=== PATIENT | male | born 1970 | race Caucasian/White ===

== ENCOUNTER 2020-07-10 12:31 | Emergency (ER) | payer BC, SELFPAY ==
[2020-07-10] VITALS (18 sets, daily range): BP systolic 119–148; BP diastolic 81–102; PULSE 85–103; RESP 12–20; TEMP 36.8; O2SAT 93–99
--- NOTE | ~2020-07-10 | XR_ITS ---
EXAMINATION: XR chest 1V portable DATE: 07/10/2020 13:08 INDICATION: Shortness of breath. COVID-19 positive. TECHNIQUE: A single frontal view of the chest was obtained. COMPARISON: None. FINDINGS: The chest demonstrates clear lungs without pneumonia, pleural effusion, or pneumothorax. Th e heart size is normal. IMPRESSION: 1. No acute cardiopulmonary disease. Reviewed, dictated and finalized at location A.
--- NOTE | 2020-07-10 12:37 | ECG_ITS ---
Measurements Intervals [place] Rate: 90 P: 59 [place]: 139 QRS: 2 QRSD: 97 T: -5 QT: 349 QTc: 428 Interpretive Statements SINUS RHYTHM VOLTAGE CRITERIA FOR LVH BORDERLINE ST-T WAVE ABNORMALITY- INFERIOR LEADS BASELINE ARTIFACT- I, II, AVR, AVF, V5-V6 BORDERLINE ECG Electronically Signed On 07-10-2020 14:31:10 CDT by Angel Tong D.O.
--- NOTE | 2020-07-10 12:47 | ED.URI ---
HPI - URI/Sore Throat General Chief Complaint: Upper Respiratory Infection Stated Complaint: COVID + CONTINUED RESP SYMPTOMS Time Seen by Provider: 07/10/20 12:34 Source: patient Mode of arrival: ambulatory Limitations: no limitations History of Present Illness HPI Narrative: This is a 49 year old male that presents to the ER for continued shortness of breath. Reports he was diagnosed with coronavirus about 10 days ago. He has had fever, cough and congestion. Also reports a couple of days of diarrhea. Reports he is continued to be short of breath. This is worse with exertion. His primary suggested he go to the ER due to shortness of breath. Reports he was prescribed azithromycin, but only finished 2 days of this due to diarrhea. Reports chest discomfort that is worse with deep breathing. Denies any recent fevers, lower extremity edema, or erythema. Related Data Allergies Allergy/AdvReac Type Severity Reaction Status Date / Time No Known Allergies Allergy Mild Verified 03/15/20 09:00 Review of Systems Review of Systems: Narrative: CONSTITUTIONAL: Denies fever ENT: Reports rhinorrhea, congestion, sore throat CARDIOVASCULAR: Reports chest pain. Denies edema. RESPIRATORY: Reports cough and dyspnea. GASTROINTESTINAL: Reports diarrhea. All systems reviewed & are unremarkable except as noted in HPI and below PMFSH Social History Social History Smoking status: Never smoker Alcohol intake: current Exam Narrative: Exam Narrative: GENERAL: Well-appearing, well-nourished, and in no acute distress. HEAD: Normocephalic, atraumatic. EYES: EOMI. ENT: Nares clear, no rhinorrhea or epistaxis. Mucous membranes moist. Oropharynx without tonsillar hypertrophy exudate or other lesions. Bilateral TMs pearly pearson non-bulging NECK: Supple. No adenopathy or masses. CHEST: Clear to auscultation. No respiratory distress. No wheezes rales or rhonchi HEART: Regular rate and rhythm. No murmur heard. Normal peripheral pulses. EXTREMITIES: Normal range of motion. No edema or erythema. SKIN: Warm, dry, no rash. NEURO: No focal deficits. Alert and oriented x3. PSYCH: Normal mood and affect Course Consultations Consultation #1: Spoke with BRIONNA Patton on-call for Dr. Sparks about patient and work-up. Patient is to follow-up outpatient. Date: 07/10/20 Time: 14:18 Vital Signs Vital signs: Vital Signs Temperature 98.2 F 07/10/20 12:55 Pulse Rate 89 07/10/20 12:55 Respiratory Rate 14 07/10/20 12:55 Blood Pressure 122/90 07/10/20 12:55 Pulse Oximetry 99 07/10/20 12:55 Temperature 98.2 F 07/10/20 12:55 Pulse Rate 89 07/10/20 12:55 Respiratory Rate 14 07/10/20 12:55 Blood Pressure 122/90 07/10/20 12:55 Pulse Oximetry 99 07/10/20 13:14 MDM - URI/Sore Throat MDM Narrative Medical decision making narrative: Patient presents to the emergency department for shortness of breath x10 days. Was diagnosed with coronavirus and has continued to be short of breath since. He is afebrile and nontoxic-appearing. Oxygen saturation has remained normal on room air. CBC and metabolic panel without concerning findings. EKG is without concerning changes. Troponin and d-dimer are negative. Chest x-ray is clear. Inflammatory markers are not elevated. BNP is normal. Patient able to ambulate and maintain his oxygen saturation. Spoke with BRIONNA Patton on-call for Dr. Sparks about patient and work-up. Patient is to follow-up outpatient. Patient is stable and felt appropriate for further outpatient evaluation. He was given warnings to return to the ER Lab Data Attestation: I reviewed the patient's lab results. Result diagrams: 07/10/20 12:46 07/10/20 12:46 Labs: Lab Results 07/10/20 07/10/20 07/10/20 Range/Units 12:46 12:46 12:46 WBC 7.4 (4.5-10.0) K/mm3 RBC 5.25 (4.6-6.20) M/mm3 Hgb 16.0 (14.0-18.0) g/dL Hct 44.6
[2020-07-10 12:54] LABS: Basophils Absolute Auto 0.1 K/mm3 (0.0-0.1); Basophils Percent Auto 0.7 % (0.2-1.2); Eosinophils Absolute Auto 0.2 K/mm3 (0-0.3); Eosinophils Percent Auto 2.4 % (0-4.4); Hematocrit 44.6 % (42.0-52.0); Immature Granulocyte Absolute 0.03 K/mm3 (0.00-0.031); Immature Granulocyte Percent A 0.4 % (0-0.5); Lymphocytes Absolute Auto 2.36 K/mm3 (0.9-3.2); Lymphocytes Percent Auto 31.8 % (18.3-44.2); Mean Corpuscular HGB Conc 35.9 g/dl (32-36); Mean Corpuscular Hemoglobin 30.5 pg (26-34); Mean Platelet Volume 10.1 fl (7.4-10.4); Monocytes Absolute Auto 0.4 K/mm3 (0.1-0.6); Monocytes Percent Auto 5.8 % (2.6-8.5); Neutrophils Absolute Auto 4.4 K/mm3 (1.3-6.7); Neutrophils Percent Auto 58.9 % (45.5-73.1); Platelet Count Result 217 k/mm3 (150-375); Red Blood Count 5.25 M/mm3 (4.6-6.20); Red Cell Distribution Width 12.2 % (11.5-14.5); White Blood Count 7.4 K/mm3 (4.5-10.0)
[2020-07-10 13:05] LABS: Lactic Acid Reflex 1.8 mmol/L (0.7-2.1)
[2020-07-10 13:09] LABS: Alanine Aminotransferase 34 U/L (4-50); Albumin Level 4.7 g/dL (3.5-5.1); Alkaline Phosphatase 81 U/L (38-126); Anion Gap 10 mmol/L (8-16); Aspartate Amino Transferase 25 U/L (17-59); Bilirubin,Total 0.3 mg/dL (0.2-1.3); Blood Urea Nitrogen 16 mg/dL (9-20); CRP < 0.5 mg/dL (<1.0); Calcium 9.1 mg/dL (8.4-10.2); Carbon Dioxide 26 mmol/L (22-30); Chloride 104 mmol/L (98-107); Estimated Glomerular Filt Rate > 60; Glucose 109 mg/dL (75-110); Lactate Dehydrogenase 366 U/L (313-618); Potassium 3.9 mmol/L (3.4-5.0); Sodium 140 mmol/L (137-145)
[2020-07-10 13:13] LABS: D Dimer 0.39 ug/mL (<0.48)
[2020-07-10 13:15] LABS: NT Pro B Type Natriuretic Pept 24 PG/ML (5-100)
[2020-07-10 13:21] LABS: Troponin I < 0.012 ng/mL (0.000-0.034)
== END 2020-07-10 14:39 | disposition home or self-care (01) ==
PROVIDERS: Physician Assistant; Emergency Provider Emergency Medicine; PCP Family Medicine
DX: U07.1 COVID-19 (principal); R06.02 Shortness of breath; R94.31 Abnormal electrocardiogram [ECG] [EKG]
CPT/HCPCS: 36415; 71045; 80053; 82728; 83605; 83615; 83880; 84484; 85025; 85380; 86140; 93005; 99284

== ENCOUNTER 2020-07-17 07:53 | Outpatient (CLI) | payer BC, SELFPAY ==
[2020-07-17 08:29] LABS: Basophils Absolute Auto 0.1 K/mm3 (0.0-0.1); Basophils Percent Auto 0.9 % (0.2-1.2); Eosinophils Absolute Auto 0.2 K/mm3 (0-0.3); Eosinophils Percent Auto 3.4 % (0-4.4); Hematocrit 40.2 % (42.0-52.0); Hemoglobin 13.9 g/dL (14.0-18.0); Immature Granulocyte Absolute 0.04 K/mm3 (0.00-0.031); Immature Granulocyte Percent A 0.6 % (0-0.5); Lymphocytes Absolute Auto 1.98 K/mm3 (0.9-3.2); Lymphocytes Percent Auto 28.4 % (18.3-44.2); Mean Corpuscular HGB Conc 34.6 g/dl (32-36); Mean Corpuscular Hemoglobin 29.8 pg (26-34); Mean Corpuscular Volume 86.3 fl (80-100); Mean Platelet Volume 10.2 fl (7.4-10.4); Monocytes Absolute Auto 0.5 K/mm3 (0.1-0.6); Monocytes Percent Auto 6.9 % (2.6-8.5); Neutrophils Absolute Auto 4.2 K/mm3 (1.3-6.7); Neutrophils Percent Auto 59.8 % (45.5-73.1); Platelet Count Result 184 k/mm3 (150-375); Red Blood Count 4.66 M/mm3 (4.6-6.20); Red Cell Distribution Width 12.5 % (11.5-14.5)
[2020-07-17 08:42] LABS: Anion Gap 8 mmol/L (8-16); Blood Urea Nitrogen 15 mg/dL (9-20); Carbon Dioxide 28 mmol/L (22-30); Chloride 104 mmol/L (98-107); Estimated Glomerular Filt Rate > 60; Glucose 98 mg/dL (75-110); Sodium 140 mmol/L (137-145)
== END 2020-07-17 07:54 | disposition home or self-care (01) ==
PROVIDERS: PCP Family Medicine; Visit Provider Family Medicine
DX: U07.1 COVID-19 (principal)
CPT/HCPCS: 36415; 80048; 85025; 85380

== ENCOUNTER 2020-07-30 18:58 | Emergency (ER) | payer BC, SELFPAY ==
--- NOTE | ~2020-07-30 | XR_ITS ---
EXAMINATION: XR chest 1V portable INDICATION: Cough and persistent shortness of breath status post COVID 19 diagnosis five weeks ago TECHNIQUE: Portable AP chest at 2011 hours COMPARISON: 07/10/2020 FINDINGS: The lungs are free of acute opacities. There is no pleural effusion or pneumothorax. The he art size is upper limits of normal for technique. IMPRESSION: 1. No acute cardiopulmonary abnormality. Reviewed, dictated and finalized at location A.
[2020-07-30 19:17] VITALS: BP 150/92; PULSE 65; RESP 12; TEMP 36.9; O2SAT 98
[2020-07-30 19:24] VITALS: PULSE 72
--- NOTE | 2020-07-30 19:28 | ECG_ITS ---
Measurements Intervals [place] Rate: 68 P: 73 [place]: 138 QRS: -20 QRSD: 111 T: -7 QT: 398 QTc: 425 Interpretive Statements SINUS RHYTHM BORDERLINE ST-T WAVE ABNORMALITY- INFERIOR LEADS BORDERLINE ECG Electronically Signed On 07-31-2020 6:40:35 CDT by Angel Tong D.O.
[2020-07-30 19:56] LABS: Alveolar/Arterial O2 Gradient 13.3 mmHg; Base Excess ABG -0.3 mEq/l (+/-2.0); Fractional Inspired Oxygen 21 %; HCO3 ABG 23.9 mEq/l (22.0-26.0); Modified Allen's Test Pass; Oxygen Content ABG 18.7 %vol (16.0-22.0); Oxygen Saturation ABG 97.2 % (95.0-100.0); Oxyhemoglobin 95.9 % THb (90.0-100.0); PCO2 ABG 37.6 mmHg (35.0-45.0); PO2 ABG 91.4 mmHg (80.0-100.0); PO2 FiO2 Ratio Arterial Blood 4.35 %; Site Drawn LEFT RADIAL; Total Hemoglobin 13.8 g/dL (12.0-18.0); pH ABG 7.421 (7.350-7.450)
[2020-07-30 19:57] LABS: Device ROOM AIR
--- NOTE | 2020-07-30 19:59 | ED.SOB ---
HPI - SOB/Dyspnea General Chief Complaint: Shortness of Breath/Dyspnea Stated Complaint: sob, recovering from covid Time Seen by Provider: 07/30/20 19:10 Source: patient History of Present Illness HPI Narrative: Pt c/o sob, sudden onset, lasted for approx 30-45 mins, now resolved. Pt currently has no complaints. Pt states he is feeling better and his sob had resolved. Denies cp, abd pain, n/v or fever. Pt states he was diagnosed with covid 5 weeks ago. Related Data Allergies Allergy/AdvReac Type Severity Reaction Status Date / Time No Known Allergies Allergy Mild Verified 07/30/20 19:24 Review of Systems Review of Systems: All systems reviewed & are unremarkable except as noted in HPI and below Constitutional: Constitutional: Denies body ache(s), Denies chills, Denies excessive sweating, Denies fatigue, Denies fever(s), Denies headache(s), Denies lethargy, Denies malaise, Denies weakness and Denies weight loss Eyes: Eyes: Denies blurry vision, Denies change in vision and Denies loss of vision ENT: Denies dizziness, Denies ear discharge, Denies headache(s), Denies lip swelling, Denies epistaxis, Denies nasal congestion, Denies neck pain, Denies throat swelling and Denies tongue swelling Cardiovascular: Cardiovascular: Denies chest pain, Denies chest pain at rest, Denies chest pain with activity, Denies diaphoresis, Denies rapid heart rate, Denies edema, Denies irregular heart rhythm, Denies lightheadedness, Denies palpitations, Denies dyspnea and Denies dyspnea on exertion Respiratory: Respiratory: Denies chest congestion, Denies cough and Denies hemoptysis Gastrointestinal: Gastrointestinal: Denies abdominal pain, Denies melena, Denies hematochezia, Denies diarrhea, Denies nausea, Denies vomiting and Denies hematemesis Musculoskeletal: Musculoskeletal: Denies abnormal gait, Denies deformity, Denies joint swelling, Denies limited range of motion, Denies neck pain and Denies numbness Neurologic: Denies Abnormal speech present, Denies abnormal gait, Denies confusion, Denies dizziness, Denies headache(s), Denies focal weakness, Denies loss of vision, Denies numbness, Denies Other visual disturbances, Denies Sensory deficit (Neuro) and Denies weakness Psychiatric: Psychiatric: Denies confusion, Denies depression, Denies auditory hallucinations, Denies homicidal ideation and Denies suicidal ideation Endocrine: Endocrine: Denies cold intolerance, Denies excessive sweating, Denies fatigue, Denies heat intolerance and Denies palpitations Hematologic/Lymphatic: Hematologic/Lymphatic: Denies easy bleeding and Denies easy bruising Allergic/Immunologic: Allergic/Immunologic: Denies lip swelling, Denies throat swelling and Denies tongue swelling [facility] Past Medical History Medical History (Updated 07/30/20 @ 22:07 by Darin Tijerina MD) COVID-19 Social History Social History Smoking status: Never smoker Alcohol intake: current Exam Const: General: cooperative, healthy appearing, comfortable, no acute distress, well developed, alert and awake; No confusion Orientation/consciousness: oriented to person, oriented to place, oriented to time, patient oriented x3 and No confusion Limitations: no limitations HENMT: Head: normal to inspection, normocephalic and atraumatic Ears: hearing grossly normal bilaterally, TM normal on the right and TM normal on the left General nose exam: Normal external nose present, Normal nares present and No nasal discharge present Face and sinus: normal facial exam Mouth: Yes Normal oral and palatal mucosa present, Yes lip normal, Yes tongue normal and Yes oropharynx normal Throat: posterior oropharynx normal, tonsils normal and uvula midline Eyes: General: appearance normal, both eyes and all related structures Pupils: Equal, round and reactive pupils present EOM: EOMs intact bilaterally Neck: Neck: normal visual inspection, full ROM, no lymphadenopath
[2020-07-30 20:11] LABS: Basophils Percent Auto 0.4 % (0.2-1.2); Eosinophils Absolute Auto 0.1 K/mm3 (0-0.3); Eosinophils Percent Auto 1.2 % (0-4.4); Hematocrit 38.8 % (42.0-52.0); Hemoglobin 13.6 g/dL (14.0-18.0); Immature Granulocyte Absolute 0.03 K/mm3 (0.00-0.031); Immature Granulocyte Percent A 0.3 % (0-0.5); Lymphocytes Absolute Auto 1.84 K/mm3 (0.9-3.2); Lymphocytes Percent Auto 19.5 % (18.3-44.2); Mean Corpuscular HGB Conc 35.1 g/dl (32-36); Mean Corpuscular Hemoglobin 30.5 pg (26-34); Mean Platelet Volume 10.1 fl (7.4-10.4); Monocytes Absolute Auto 0.7 K/mm3 (0.1-0.6); Neutrophils Absolute Auto 6.8 K/mm3 (1.3-6.7); Neutrophils Percent Auto 71.6 % (45.5-73.1); Platelet Count Result 190 k/mm3 (150-375); Red Blood Count 4.46 M/mm3 (4.6-6.20); Red Cell Distribution Width 12.7 % (11.5-14.5); White Blood Count 9.4 K/mm3 (4.5-10.0)
[2020-07-30 20:21] LABS: Partial Thromboplastin Time 29.2 SECONDS (22.3-36.8)
[2020-07-30 20:23] LABS: Alanine Aminotransferase 24 U/L (4-50); Albumin Level 4.7 g/dL (3.5-5.1); Alkaline Phosphatase 77 U/L (38-126); Anion Gap 8 mmol/L (8-16); Aspartate Amino Transferase 22 U/L (17-59); Bilirubin,Total 0.3 mg/dL (0.2-1.3); Blood Urea Nitrogen 16 mg/dL (9-20); Calcium 8.9 mg/dL (8.4-10.2); Carbon Dioxide 25 mmol/L (22-30); Chloride 105 mmol/L (98-107); Estimated Glomerular Filt Rate > 60; Glucose 105 mg/dL (75-110); Potassium 3.7 mmol/L (3.4-5.0); Sodium 138 mmol/L (137-145)
[2020-07-30 20:24] LABS: D Dimer 0.27 ug/mL (<0.48)
[2020-07-30 20:35] LABS: NT Pro B Type Natriuretic Pept 55 PG/ML (5-100); Troponin I < 0.012 ng/mL (0.000-0.034)
[2020-07-30 20:59] VITALS: BP 136/89; PULSE 75; RESP 14; O2SAT 97
[2020-07-30 22:40] VITALS: BP 118/90; PULSE 78; RESP 19; TEMP 36.8; O2SAT 98
== END 2020-07-30 22:42 | disposition home or self-care (01) ==
PROVIDERS: Emergency Provider Emergency Medicine; PCP Family Medicine
DX: R06.00 Dyspnea, unspecified (principal)
CPT/HCPCS: 36415; 36600; 71045; 80053; 82805; 83880; 84484; 85025; 85380; 85610; 85730; 93005; 99284

== ENCOUNTER 2020-08-08 10:37 | Outpatient (CLI) | payer BC, SELFPAY ==
--- NOTE | 2020-08-08 10:48 | ECHO_ITS ---
Patient Info Name: Naeem Rhodes Age: 49 years : 1970 Gender: Male Ht: 70 in Wt: 182 lbs BSA: 2.03 m2 BP: 135 / 90 mmHg Exam Date: 08/08/2020 11:01 AM Exam Location: [facility] Patient Status: Outpatient Admit Date: 08/08/2020 Staff Ordering Physician: Vickey Sparks MD Clinical Team Lead: Allyson Schreiber RDCS Attending Provider: Vickey Sparks MD Referring Physician: Bridger LINTON; Exam Type: CA echo doppler color flow Study Info Indications R00.0 - Tachycardia, unspecified Complete two-dimensional, color flow and Doppler transthoracic echocardiogram is performed. Summary 1. Complete two-dimensional, color flow and Doppler transthoracic echocardiogram is performed. 2. Left ventricular chamber dimension is normal. 3. Left ventricular systolic function is normal, estimated at 55-60%. 4. The left ventricular diastolic function is grade I diastolic dysfunction. 5. E/e' 6 is not elevated. 6. Global longitudinal strain is mildly abnormal at -15.9%. 7. There is trace mitral valve regurgitation. 8. There is trace pulmonic regurgitation. Left Ventricle E/e' 6 is not elevated. Global longitudinal strain is mildly abnormal at -15.9%. Left ventricular chamber dimension is normal. Left ventricular systolic function is normal, estimated at 55-60%. The left ventricular diastolic function is grade I diastolic dysfunction. Right Ventricle Right ventricular chamber dimension is normal. Right ventricular systolic function is normal. Left Atria Left atrial chamber dimension is normal. Right Atria Right atrial chamber dimension is normal. Aortic Valve The aortic valve is trileaflet. There is no aortic valve stenosis. There is no aortic valve regurgitation. Pulmonic Valve There is trace pulmonic regurgitation. Mitral Valve There is no mitral valve stenosis. There is trace mitral valve regurgitation. Tricuspid Valve There is no tricuspid valve regurgitation. Pericardium/Pleural There is no pericardial effusion. Inferior Vena Cava Normal inferior vena cava with >50% collapse upon inspiration consistent with normal right atrial pressure, 5 mmHg. Aorta The aortic root size at the sinus of Valsalva is normal. Left Ventricular Outflow Tract Name Value Normal LVOT 2D LVOT Diameter 2.0 cm LVOT Doppler LVOT Peak Gradient 5 mmHg LVOT Mean Gradient 3 mmHg LVOT VTI 20 cm LVOT VTI/AV VTI Ratio 0.8 LVOT Stroke Volume 66 ml LVOT CO 5.2 l/min LVOT CI 2.5 l/min/m2 Mitral Valve Name Value Normal MV Doppler MV Decel [place] 308 cm/s2 MV PHT 48 ms
== END 2020-08-08 10:38 | disposition home or self-care (01) ==
PROVIDERS: PCP Family Medicine; Visit Provider Family Medicine
DX: R00.0 Tachycardia, unspecified (principal); R06.00 Dyspnea, unspecified
CPT/HCPCS: 93306

== ENCOUNTER 2020-12-18 13:52 | Outpatient (CLI) | payer BC, SELFPAY ==
--- NOTE | 2020-12-18 16:47 | P.PCNPFT_ITS ---
PFT Interpretation This is a pulmonary function test with spirometry, plethysmography and diffusing capacity. The test was performed and results interpreted in accordance with the 2019 and 2005 ATS/ERS Task Force guidelines respectively using the Rajeev/Poldianne reference equations. Findings: Spirometry: The contour of the inspiratory and expiratory flow tracing are nor mal. The FVC is 4.56 L, 88% predicted. The FEV1 is 3.80 L, 101% predicted. The FEV1: FVC ratio was 83%. Plethysmography the total lung capacity is 5.89 L, 81% predicted. The functional residual capacity is 1.99 L, 49% predicted. The residual volume is 1.32 L, 57% predicted. Diffusing capacity the absolute diffusion capacity is 23.1, 86% predicted. The diffusing capacity corrected for alveolar volume is 3.79, 93% predicted. Impression: The spirometry is normal without evidence of an obstructive abnormality. There is a reduction in the residual volume and functional residual capacity with a normal total lung capacity. This is an abnormal but nonspecific lung volume pattern. The diffusing capacity is normal. There are no prior studies for comparison
== END 2020-12-18 13:53 | disposition home or self-care (01) ==
PROVIDERS: PCP Family Medicine; Visit Provider Family Medicine
DX: U07.1 COVID-19 (principal); R06.00 Dyspnea, unspecified
CPT/HCPCS: 94375; 94726; 94729

== ENCOUNTER 2021-01-03 09:32 | Outpatient (CLI) | payer BC, SELFPAY ==
--- NOTE | 2021-01-03 09:40 | EST_ITS ---
Patient Info Name: Naeem Rhodes Age: 50 years : 1970 Gender: Male Ht: 71 in Wt: 187 lbs BSA: 2.07 m2 HR: 65 bpm Technical Quality: Good Exam Date: 01/03/2021 10:08 AM Exam Location: [facility] Patient Status: Outpatient Admit Date: 01/03/2021 Staff Ordering Physician: Vickey Sparks MD Hair Specialist: Karime Alfredo RDCS Attending Provider: Vickey Sparks MD Referring Physician: Bridger LINTON; Exercise Technologist: Maryanne Mcwilliams CT Exercise Physician: Angel Tong DO Exam Type: CA stress echo Study Info Indications R06.00 - Dyspnea, unspecified Treadmill exercise stress echocardiogram is performed. Summary 1. 1. Negative Dez exercise stress test for ischemic ST changes by ECG criteria. 2. 2. Good functional capacity, achieving 11 METs of workload. 3. 3. Baseline hypertension. 4. 4. Appropriate HR response to exercise. 5. 5. Appropriate HR recovery at 1 minute post exercise. 6. 6. Negative stress echocardiogram for ischemia by wall motion analysis. 7. 7. Patient informed of the above results. Stress Echo Findings Left Ventricle Appropriate increase in LV endocardial thickening with systole. Appropriate augmentation of contractility with systole. No wall motion abnormality. Left Ventricle Normal LV systolic function, no wall motion abnormality. Protocol: Dez Stress ECG Details Stage: REST Duration (min): 19 min : 2 sec Speed (mph): 0.0 Grade (%): 0 HR (bpm): 75 SBP (mmHg): 142 DBP (mmHg): 79 METS: --- Stage: STAGE 1 Duration (min): 1 min : 0 sec Speed (mph): 1.7 Grade (%): 10 HR (bpm): 93 SBP (mmHg): 142 DBP (mmHg): 79 METS: --- Stage: STAGE 1 Duration (min): 2 min : 0 sec Speed (mph): 1.7 Grade (%): 10 HR (bpm): 106 SBP (mmHg): 142 DBP (mmHg): 79 METS: --- Stage: STAGE 1 Duration (min): 3 min : 0 sec Speed (mph): 1.7 Grade (%): 10 HR (bpm): 109 SBP (mmHg): 172 DBP (mmHg): 75 METS: --- Stage: STAGE 2 Duration (min): 1 min : 0 sec Speed (mph): 2.5 Grade (%): 12 HR (bpm): 121 SBP (mmHg): 172 DBP (mmHg): 75 METS: --- Stage: STAGE 2 Duration (min): 2 min : 0 sec Speed (mph): 2.5 Grade (%): 12 HR (bpm): 127 SBP (mmHg): 185 DBP (mmHg): 76 METS: --- Stage: STAGE 2 Duration (min): 3 min : 0 sec Speed (mph): 2.5 Grade (%): 12 HR (bpm): 129 SBP (mmHg): 185 DBP (mmHg): 76 METS: --- Stage: STAGE 3 Duration (min): 1 min : 0 sec Speed (mph): 3.4 Grade (%): 14 HR (bpm): 142 SBP (mmHg): 204 DBP (mmHg): 74 METS: --- Stage: STAGE 3 Duration (min): 2 min : 0 sec Speed (mph): 3.4 Grade (%): 14 HR (bpm): 149 SBP (mmHg): 204 DBP (mmHg): 74 METS: --- Stage: STAGE 3 Duration (min): 3 min : 0 sec Speed (mph): 3.4 Grade (%): 14 HR (bpm): 155 SBP (mmHg): 204 DBP (mmHg): 76 METS: --- Stage: ST
== END 2021-01-03 09:33 | disposition home or self-care (01) ==
PROVIDERS: PCP Family Medicine; Visit Provider Family Medicine
DX: R06.00 Dyspnea, unspecified (principal); U07.1 COVID-19
CPT/HCPCS: 93351

== ENCOUNTER 2021-09-10 08:02 | Outpatient (CLI) | payer BC, SELFPAY ==
--- NOTE | 2021-09-10 14:57 | WPDPFTINT ---
PFT Procedure Performed PFT Procedure Performed Spirometry with Pre/Post Bronchodilator Plethysmography (Lung Vol) Diffusing Cap (DLCO) Flow Vol Loop PFT Interpretation Lung volumes were measured with the body plethysmography method. The lung volumes are unremarkable. Spirometry showed normal expiratory flow rates and a normal FEV1 to FVC ratio of 82%. Following administration of a bronchodilator, there was no change in the expiratory flow rates. Lung diffusion capacity is borderline normal at 74 % predicted. The flow volume loop is unremarkable. In comparison to a previous study in December of 2020, the pre bronchodilator FVC and FEV1 are essentially unchanged. The total lung capacity is now greater by approximately 0.7 L whereas the lung diffusion capacity is now lower by approximately 10%. Impression: Spirometry and lung volumes within the normal range. Borderline normal lung diffusion capacity.
== END 2021-09-10 08:03 | disposition home or self-care (01) ==
PROVIDERS: PCP Family Medicine; Visit Provider Family Medicine
DX: U07.1 COVID-19 (principal); R06.00 Dyspnea, unspecified
CPT/HCPCS: 94060; 94726; 94729

== ENCOUNTER 2022-09-13 10:11 | Outpatient (CLI) | payer BC, SELFPAY ==
--- NOTE | ~2022-09-13 | XR_ITS ---
EXAMINATION: XR lumbar spine 6V w bending DATE: 09/13/2022 10:44 INDICATION: Low back pain TECHNIQUE: Anteroposterior, lateral in neutral, flexion and extension, and bilateral oblique views of the lumbar spine, and cone-down lateral view of the lumbosacral junction were obtained. COMPARISON: 01/29/2006 FINDINGS: There is no fracture, dislocation, or subluxation. No laxity is present with flexion or ext ension. The vertebral body heights are maintained. There is mild loss of intervertebral disc space he ight at L4-5 and L5-S1. Small degenerative osteophytes project from the anterior endplates of multipl e vertebral bodies. Calcified atherosclerosis is noted. There is moderate facet osteoarthritis of the lower lumbar spine. IMPRESSION: 1. Mild lumbar spondylosis without acute findings. Reviewed, dictated and finalized at location B. ETCH OPERATOR
--- NOTE | ~2022-09-13 | XR_ITS ---
EXAMINATION: XR hip RT min 3V w AP pelvis INDICATION: Right groin pain TECHNIQUE: AP view the pelvis and three views of the right hip are obtained. COMPARISON: None available FINDINGS: Bone alignment is normal. There is no fracture. There is mild osteoarthritis of the hips. P hleboliths are noted in the right pelvis. IMPRESSION: 1. Mild osteoarthritis of the hips. Reviewed, dictated and finalized at location B. ICATIONS ENGINEER
== END 2022-09-13 10:12 | disposition home or self-care (01) ==
PROVIDERS: PCP Family Medicine; Visit Provider Family Medicine
DX: M16.0 Bilateral primary osteoarthritis of hip (principal); M47.896 Other spondylosis, lumbar region
CPT/HCPCS: 72114; 73502

== ENCOUNTER 2022-09-17 12:25 | Outpatient (CLI) | payer BC, SELFPAY ==
--- NOTE | ~2022-09-17 | US_ITS ---
EXAMINATION: US scrotum doppler DATE: 09/17/2022 13:09 INDICATION: Epididymitis. TECHNIQUE: Grayscale and Doppler ultrasound images of the testes were obtained. COMPARISON: Ultrasound 09/02/2010 FINDINGS: The right testis measures 4.9 x 3.1 x 4.1 cm. The left testis measures 4.8 x 1.7 x 3.2 cm. There is normal vascular flow to both testes. The right epididymis is normal with normal vascular carlo w. The left epididymis is normal with normal vascular flow. There is no varicocele or hydrocele. IMPRESSION: 1. Normal testes. Reviewed, dictated and finalized at location A. CLEANER IMPRESSION: 1. Normal testes.
== END 2022-09-17 12:26 | disposition home or self-care (01) ==
PROVIDERS: PCP Family Medicine; Visit Provider Family Medicine
DX: N45.1 Epididymitis (principal)
CPT/HCPCS: 76870; 93976

== ENCOUNTER 2023-04-08 16:08 | Outpatient (CLI) | payer BC, SELFPAY ==
--- NOTE | ~2023-04-08 | CT_ITS ---
EXAMINATION: CT abdomen pelvis wo con DATE: 04/08/2023 16:30 INDICATION: Nephrolithiasis presenting with left lower quadrant and testicular pain. TECHNIQUE: Computed tomography (CT) of the abdomen and pelvis was performed without intravenous contr ast. Automated exposure control and iterative reconstruction technique were employed. The dose-length product was 300.56 mGy-cm. COMPARISON: None FINDINGS: Lung bases are clear. Heart size is normal. No pericardial or pleural effusion. Somewhat ill-defined 4.7 x 3.2 cm low-attenuation mass in the ginger hepatis at the junction of segments 4A and 4B of the l iver. There are couple additional 2.5-3 cm abutting masses in segment 6 of the liver. Gallbladder is normal. Spleen, pancreas, bilateral adrenal glands and kidneys are normal. No urolithiasis or hydrone phrosis. Bowels including the appendix are normal. Bladder is normal. Mild prostatomegaly measuring 4 .4 x 3.3 cm. Small fat-containing left inguinal hernia. No free intraperitoneal gas or fluid. No path ologically enlarged abdominal or pelvic lymphadenopathy. Mild lumbar and lower thoracic spondylosis. IMPRESSION: 1. There are 3 subtle indeterminate hypodense hepatic masses which in the absence of known liver dise ase or malignancy are more likely benign than malignant. Would recommend further evaluation with pre and postcontrast MRI or CT, preferably the former 2. Small fat-containing left inguinal hernia.. Reviewed, dictated and finalized at location A. IMPRESSION: 1. There are 3 subtle indeterminate hypodense hepatic masses which in the absen ce of known liver disease or malignancy are more likely benign than malignant. Would recommend further evaluation with pre and postcontrast MRI or CT, prefera jennifer the former 2. Small fat-containing left inguinal hernia..
== END 2023-04-08 16:09 | disposition home or self-care (01) ==
PROVIDERS: PCP Family Medicine
DX: N20.0 Calculus of kidney (principal); N50.812 Left testicular pain; K40.90 Unilateral inguinal hernia, without obstruction or gangrene, not specified as recurrent
CPT/HCPCS: 74176

== ENCOUNTER 2023-04-18 10:46 | Outpatient (CLI) | payer BC, SELFPAY ==
--- NOTE | ~2023-04-18 | MR_ITS ---
EXAMINATION: MR abdomen wo/w con INDICATION: Liver mass TECHNIQUE: Coronal SSFSE ARC, WATER:coronal LAVA-FLEX, Coronal 2D FIESTA FatSat, Axial SSFSE BH ARC, Axial 3D DualEcho BH, Axial SSFSE-IR, Axial DWI b=500, Axial 2D FIESTA FatSat, pre and dynamic postco ntrast Axial LAVA ARC, postcontrast Coronal In and Opposed phase LAVA FLEX COMPARISON: CT, 04/08/2023 CONTRAST: Multihance, 16 cc FINDINGS: There is a 4.1 x 2.7 cm T1 hypointense, T2 hyperintense mass in liver segment Ish which dem onstrates interrupted peripheral nodular enhancement with gradual or central filling after contrast a dministration. Masses in liver segment measuring 2.9 x 1.9 cm and 2.7 x 1.7 cm and demonstrates si milar MRI characteristics. No suspicious liver mass is identified. The spleen, pancreas, gallbladder, and adrenal glands are normal. There are peripelvic cysts of the left kidney. The right kidney is un remarkable. There are no pathologically enlarged abdominal lymph nodes. IMPRESSION: 1. Hemangiomas of the liver corresponding to the masses in question on CT. No suspicious liver mass i dentified. Reviewed, dictated and finalized at location A. IMPRESSION: 1. Hemangiomas of the liver corresponding to the masses in question on CT. No s uspicious liver mass identified.
== END 2023-04-18 10:47 | disposition home or self-care (01) ==
PROVIDERS: PCP Family Medicine; Visit Provider Family Medicine
DX: R16.0 Hepatomegaly, not elsewhere classified (principal); D18.03 Hemangioma of intra-abdominal structures
CPT/HCPCS: 74183; A9577

== ENCOUNTER 2023-06-09 15:30 | Outpatient (CLI) | payer BC, SELFPAY ==
--- NOTE | ~2023-06-09 | DEXA_ITS ---
Bone Density Report Name: PHAN BOYD (JASON) J Age: 52 Sex: Male Ethnicity: White Date of : 1970 Indication: osteoporosis Referring Provider: UNKNOWN, UNKNOWN Study: Bone densitometry was performed. Exam Date: June 09, 2023 Accession number: [id number] Bone Density: Region BMD T-score Z-score Classification AP Spine(L1-L4) 1.025 -0.6 -0.2 Normal Femoral Neck (Left) 0.785 -1.1 -0.3 Osteopenia Total Hip (Left) 1.028 0.0 0.3 Normal Femoral Neck (Right) 0.770 -1.2 -0.4 Osteopenia Total Hip (Right) 1.052 0.1 0.5 Normal Total Hip Mean 1.040 0.1 0.4 Normal World Health Organization criteria for BMD impression classify patients as: Normal (T-score at or above -1.0), Osteopenia (T-score between -1.0 and -2.5), or Osteoporosis (T-score at or below -2.5). 10-year Fracture Risk(1): Major Osteoporotic Fracture 4.0% Hip Fracture 0.3% Reported Risk Factors: [place] (), Neck BMD=0.770, BMI=26.7 (1) FRAX(R) Version 3.08. Fracture probability calculated for an untreated patient. Fracture probability may be lower if the patient has received treatment. Clinical Information Provided by Patient: Patient maximum height was 71 Drinks caffeinated beverages Impression: The patient has low bone mass, based on the Right Femoral Neck T-score. The patient has an estimated ten-year risk of hip fracture of 0.3% and an estimated ten-year risk of major fracture of 4%, based on the WHO FRAX algorithm. Discussion: BONE DENSITY IS LOW AT ONE OR MORE SKELETAL SITES. This patient's lowest T-score is low at one or more skeletal sites. It meets the World Health Organization's (WHO) criteria for ?low bone mass? (T-score between -1.0 and -2.5). The patient's 10-year risk of fracture as calculated by FRAX is less than the threshold where pharmacological therapy is recommended by the National Osteoporosis Foundation (NOF). However, all treatment decisions require clinical judgment and consideration of individual patient factors, including patient preferences, comorbidities, previous drug use, risk factors not captured in the FRAX model (e.g., frailty, falls, vitamin D deficiency, increased bone turnover, interval significant decline in bone density) and possible under or overestimation of fracture risk by FRAX. The patient should follow a healthful lifestyle (good nutrition with adequate calcium and vitamin D, and appropriate weight-bearing exercise). Follow-Up: Consider repeating this study in 2 to 3 years to reassess this patient's status, or sooner if there is some new clinical indication. Reported by: CHRISTOPHER on 06/09/2023 3:58:00 PM. Reviewed, dictated and finalized at location A. CHRIST
== END 2023-06-09 15:31 | disposition home or self-care (01) ==
LOC: ANHIMG 15:32
PROVIDERS: PCP Family Medicine
DX: M81.0 Age-related osteoporosis without current pathological fracture (principal); M85.852 Other specified disorders of bone density and structure, left thigh; M85.851 Other specified disorders of bone density and structure, right thigh
CPT/HCPCS: 77080

== ENCOUNTER 2023-07-26 09:21 | Outpatient (CLI) | payer BC, SELFPAY | END 2023-07-26 09:22 | disposition home or self-care (01) | LOC: ANHLAB 09:23 | PROVIDERS: PCP Family Medicine; Visit Provider Surgery | DX: Z01.818 Encounter for other preprocedural examination (principal); K40.90 Unilateral inguinal hernia, without obstruction or gangrene, not specified as recurrent | CPT/HCPCS: 36415; 86850; 86900; 86901 ==

== ENCOUNTER 2023-08-13 12:51 | Outpatient (CLI) | payer BC, SELFPAY | END 2023-08-13 12:52 | disposition home or self-care (01) | PROVIDERS: PCP Family Medicine; Visit Provider Surgery | DX: K40.90 Unilateral inguinal hernia, without obstruction or gangrene, not specified as recurrent (principal); Z01.818 Encounter for other preprocedural examination | CPT/HCPCS: 36415; 86850; 86900; 86901 ==

== ENCOUNTER 2023-08-23 01:36 | Day surgery (SDC) | payer BC, SELFPAY ==
--- NOTE | 2023-07-21 15:02 | PC.NURSE ---
Addendum entered by Nirali Butts RN 07/21/23 15:27: Instructed patient to use hibiclens to bath or shower with the night before or morning of surgery. Original Note: Report to the Outpatient Waiting Room, entrance under the [address]obb pavilion located off [facility], at time 1000 on date 07/29/23. Planned Procedure Time: 1200. Time changes happen often and if your time is changed the preop area will call you the afternoon before. - You and your visitor will be asked to self-screen and do not enter if you have any COVID symptoms. - A mask is optional within the hospital at this time. Patients may have clear liquids (water, carbonated beverages, clear teas, apple juice) until 3 hours prior to surgery with a maximum of 20 ounces. 0900 - No food from midnight until time of surgery - Infants may have breast milk until 4 hours before surgery, infant formula 6 hours prior to surgery. - Children will be allowed to drink immediately following surgery. If applicable, please bring a bottle or sippy cup to assist with drinking. Juice, water, soda, and popsicles are readily available. For infants on formula, please bring formula the day of surgery. Pacifiers are allowed. Take the following medications with a SIP of water the morning of surgery: None DO NOT STOP ANY OF YOUR OTHER PRESCRIPTION MEDICATIONS PRIOR TO SURGERY ?EXCEPT THE FOLLOWING Medications to discontinue per physician Multivitamin & Supplements, testosterone, metamucil, nasal sprays Date to take last dose Multivitamins & Supplements- 07/26/23, testosterone, metamucil, nasal sprays- 07/28/23 Please no make-up, nail citizen of [place], hairspray, perfume, deodorant, or body powder the day of surgery. No jewelry (including any body piercings) or valuables the day of surgery, leave them at home. Please take a shower or bath the night before, or the morning of, surgery with an antibacterial soap. Wear comfortable, loose fitting clothing. Children are encouraged to wear pajamas. - Jewelry must be removed prior to entering the operating room. Rings and piercings that are not removed may be cut off. - The hospital will not accept responsibility for valuables. - Please leave all valuables, including medications, at home the day of surgery. If you are going home after surgery, a licensed caterpillar driver must drive you home. - NO public transportation without another adult if you receive anesthesia. - We recommend that an adult stay with you for 24 hours following discharge. - We also recommend that you do not drive, make important decision, drink alcoholic beverages, or take any drugs that were not prescribed by your health care provider for at least 24 hours after your discharge time. For Pediatric surgeries, we recommend two adults accompany the child home. Follow any additional instructions given to you from your surgeon. If you or anyone in your household have experienced Covid symptoms in the past week, please notify your surgeon or the nurse liaison at the phone number below for possible testing. Telephone instructions given to Patient- Oswaldo Rhodes and asked if any additional questions and then verbalized understanding. Patient advised to call surgeon office or pre surgery nurse liaison [phone] if any additional questions.
--- NOTE | 2023-07-21 15:14 | PC.NURSE ---
Patient stated he tested positive for covid on 07/17/23. Patient contacted Dr. Guerra's office regarding positive covid test and was instructed that if he was symptom free for 5 days prior to his procedure date he would still be able to have his surgery. Notified patient to call Dr. Guerra & nurse liaison Jaimee if symptoms do not subside by the 5 days prior to surgery.
[2023-07-21 15:25] VITALS: BMI 25.7
--- NOTE | 2023-08-02 13:07 | PC.NURSE ---
Pt states Covid symptoms improving. No other medication or medical history changes. New pre-op instructions reviewed with pt. Pt denies further questions at this time.
--- NOTE | 2023-08-02 13:08 | PC.NURSE ---
Report to the Outpatient Waiting Room, entrance under the green pavilion located off [facility], at time 1000 on date 08/12/23. Planned Procedure Time: 1200. Time changes happen often and if your time is changed the preop area will call you the afternoon before. - You and your visitor will be asked to self-screen and do not enter if you have any COVID symptoms. - A mask is optional within the hospital at this time. Patients may have clear liquids (water, carbonated beverages, clear teas, apple juice) until 3 hours prior to surgery with a maximum of 20 ounces. - No food from midnight until time of surgery Take the following medications with a SIP of water the morning of surgery: NONE DO NOT STOP ANY OF YOUR OTHER PRESCRIPTION MEDICATIONS PRIOR TO SURGERY ?EXCEPT THE FOLLOWING Medications to discontinue per physician: VITAMINS/SUPPLEMENTS Date to take last dose: 08/08/23 Please no make-up, nail czech, hairspray, perfume, deodorant, or body powder the day of surgery. No jewelry (including any body piercings) or valuables the day of surgery, leave them at home. Please take a shower or bath the night before, or the morning of, surgery with an antibacterial soap (HIBICLENS). Wear comfortable, loose fitting clothing. - Jewelry must be removed prior to entering the operating room. Rings and piercings that are not removed may be cut off. - The hospital will not accept responsibility for valuables. - Please leave all valuables, including medications, at home the day of surgery. If you are going home after surgery, a licensed truck driver's offsider must drive you home. - NO public transportation without another adult if you receive anesthesia. - We recommend that an adult stay with you for 24 hours following discharge. - We also recommend that you do not drive, make important decision, drink alcoholic beverages, or take any drugs that were not prescribed by your health care provider for at least 24 hours after your discharge time. Follow any additional instructions given to you from your surgeon. If you or anyone in your household have experienced Covid symptoms in the past week, please notify your surgeon or the nurse liaison at the phone number below for possible testing. Telephone instructions given to PT Qing BOYD and asked if any additional questions and then verbalized understanding. Patient advised to call surgeon office or pre surgery nurse liaison [phone] if any additional questions.
--- NOTE | 2023-08-10 15:28 | PC.NURSE ---
Addendum entered by Hank Bernard RN 08/10/23 15:29: Shower with Johanvitaliy day of surgery. Original Note: Report to the Outpatient Waiting Room, entrance under the green pavilion located off [facility], at time _0600_ on date _[id number]_. Planned Procedure Time: _0730_. Time changes happen often and if your time is changed the preop area will call you the afternoon before. - You and your visitor will be asked to self-screen and do not enter if you have any COVID symptoms. - A mask is optional within the hospital at this time. Patients may have clear liquids (water, carbonated beverages, clear teas, apple juice) until 3 hours prior to surgery with a maximum of 20 ounces. - No food from midnight until time of surgery Take the following medications with a SIP of water the morning of surgery: __None DO NOT STOP ANY OF YOUR OTHER PRESCRIPTION MEDICATIONS PRIOR TO SURGERY ?EXCEPT THE FOLLOWING Medications to discontinue per physician Vitamins and supplements Date to take last evlb____[id number] Please no make-up, nail [place], hairspray, perfume, deodorant, or body powder the day of surgery. No jewelry (including any body piercings) or valuables the day of surgery, leave them at home. Please take a shower or bath the night before, or the morning of, surgery with an antibacterial soap. Wear comfortable, loose fitting clothing. - Jewelry must be removed prior to entering the operating room. Rings and piercings that are not removed may be cut off. - The hospital will not accept responsibility for valuables. - Please leave all valuables, including medications, at home the day of surgery. If you are going home after surgery, a licensed explosives truck driver must drive you home. - NO public transportation without another adult if you receive anesthesia. - We recommend that an adult stay with you for 24 hours following discharge. - We also recommend that you do not drive, make important decision, drink alcoholic beverages, or take any drugs that were not prescribed by your health care provider for at least 24 hours after your discharge time. Follow any additional instructions given to you from your surgeon. If you or anyone in your household have experienced Covid symptoms in the past week, please notify your surgeon or the nurse liaison at the phone number below for possible testing. Telephone instructions given to __Patient___and asked if any additional questions and then verbalized understanding. Patient advised to call surgeon office or pre surgery nurse liaison [phone] if any additional questions.
[2023-08-23] VITALS (8 sets, daily range): BP systolic 109–148; BP diastolic 58–97; PULSE 67–78; RESP 14–16; TEMP 36.2–36.6; O2SAT 97–100
--- NOTE | 2023-08-23 06:56 | WPDANESEPPF ---
Anes - Initial Pre Proc Eval Procedure: Operation Date: 08/23/23 07:30 Proposed Procedures p Robotic Assisted Laparoscopic Left Inguinal Hernia Repair with Mesh - Nadira Guerra MD Date/Time: 08/23/23 06:56 Surgeon: Nadira Guerra MD Pre Op Diagnosis: left Inguinal Hernia Patient Data Age: 52 Gender: M Height: 1.8 m Weight: 83.6 kg Allergies Allergy/AdvReac Type Severity Reaction Status Date / Time No Known Allergies Allergy Mild Verified 08/02/23 13:05 Home Medications Medication Instructions Recorded Confirmed Type azelastine 137 mcg (0.1 %) nasal 137 mcg intranasal DAILY 09/04/22 08/02/23 History spray aerosol fluticasone propionate 50 2 spray intranasal DAILY 09/04/22 08/02/23 History mcg/actuation nasal spray,suspension psyllium husk (with sugar) 3.4 1 tbsp PO DAILY 04/26/23 08/02/23 History gram/12 gram oral powder (Metamucil (with sugar)) testosterone 2 pump topical DAILY #75 grams 07/13/23 08/02/23 Rx Adults Multivitamin 1 tab-cap PO DAILY 07/21/23 08/02/23 History Fish Oil 1 cap PO DAILY 07/21/23 08/02/23 History cholecalciferol (vitamin D3) 125 5,000 mcg PO DAILY 07/21/23 08/02/23 History mcg (5,000 unit) tablet Patient hx anesthesia problems: none Family hx anesthesia problems: none Results Review: All pre-operative results and documents have been reviewed as part of the pre-operative evaluation. [facility] Past Medical History Medical History Acute epididymitis BMI 26.0-26.9,adult COVID-19 Dyspnea Elevated glucose Hip pain Inguinal hernia Liver masses Low back pain Lumbosacral radiculopathy due to degenerative joint disease of spine Surgical History Surgical History History of nasal surgery Deviated septum repair in 1995 Family History Family History Grandparent Hypertension Family history of malignant neoplasm of breast Father No problems noted. Mother No problems noted. 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 Informed Consent: The patient's anesthetic plan and its attendant risks and benefits were discussed with the patient/family/POA. Questions were solicited and answers provided to the satisfaction of the patient/family/POA.
[2023-08-23] MEDS: ACETAMINOPHEN 500 MG TABLET 1000 MG PO (07:15)
[2023-08-23] MEDS: LACTATED RINGERS 1,000 ML 30 ML IV CONT ×2 (07:15→09:00)
[2023-08-23] MEDS: KETOROLAC 15 MG/ML VIAL (*BKC) IV PUSH (07:15)
--- NOTE | 2023-08-23 07:15 | WPDHPUPDATE1 ---
History and Physical Update Update Date/Time: 08/23/23 07:15 History and Physical has been reviewed, including an updated exam of the patient. There are NO changes in the patient's condition. Risks, benefits, and alternatives have been discussed and questions answered. Patient agrees to proceed with procedure.
--- NOTE | 2023-08-23 07:16 | PM.IMHP ---
H&P: HPI History of Present Illness Date/Time: 08/23/23 07:16 Chief Complaint: left inguinal hernia Narrative: Mr Rhodes is a 52 year old male that presents to the office at the request of Dr Sparks for an evaluation of left inguinal hernia. Patient reports that for about the last 11 months,?he has had pain in his left groin after heavy lifting. He states he noticed the pain after lifting lawn equipment, the pain is in the left testicular and left groin region. Patient reports that 12 years ago he had an episode of similar pain and it turned out it was his back. He was able to get injections and he has had no issues since. Patient reports there is no bulge in the area though but due to his pervious history after experiencing this pain he had his back worked up. After no surgical intervention was recommended for his back, a CT scan of the abdomen and pelvis was ordered to be sure nothing else was going on causing the pain. Patient had a CT scan of the abdomen and pelvis without contrast on 04/08/23 at [facility] that showed there area 3 subtle indeterminate hypodense hepatic masses which in the absence of known liver disease or malignancy are more likely benign than malignant. Small fat-containing left inguinal hernia.? He notices the pain after lifting still today. He has had no changes in diet, urination, or BMs. Review of Systems Review of Systems: All systems reviewed & are unremarkable except as noted in HPI and below PMFSH Past Medical History Medical History Acute epididymitis BMI 26.0-26.9,adult COVID-19 Dyspnea Elevated glucose Hip pain Inguinal hernia Liver masses Low back pain Lumbosacral radiculopathy due to degenerative joint disease of spine Surgical History Surgical History History of nasal surgery Deviated septum repair in 1995 Family History Family History Grandparent Hypertension Family history of malignant neoplasm of breast Father No problems noted. Mother No problems noted. 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 Spiritual care concerns: No Meds Home Medications and Allergies Home Medications Medication Instructions Recorded Confirmed Type azelastine 137 mcg (0.1 %) nasal 137 mcg intranasal DAILY 09/04/22 08/02/23 History spray aerosol fluticasone propionate 50 2 spray intranasal DAILY 09/04/22 08/02/23 History mcg/actuation nasal spray,suspension psyllium husk (with sugar) 3.4 1 tbsp PO DAILY 04/26/23 08/02/23 History gram/12 gram oral powder (Metamucil (with sugar)) testosterone 2 pump topical DAILY #75 grams 07/13/23 08/02/23 Rx Adults Multivitamin 1 tab-cap PO DAILY 07/21/23 08/02/23 History Fish Oil 1 cap PO DAILY 07/21/23 08/02/23 History cholecalciferol (vitamin D3) 125 5,000 mcg PO DAILY 07/21/23 08/02/23 History mcg (5,000 unit) tablet Allergies Allergy/AdvReac Type Severity Reaction Status Date / Time No Known Allergies Allergy Mild Verified 08/02/23 13:05 Exam Const: General: cooperative, healthy appearing and comfortable Resp: Auscultation: clear to auscultation bilaterally Cardio: Rate: regular rate Rhythm: regular rhythm GI: Inspection: normal to inspection and non-distended GI Palp: No abdominal tenderness, Yes Soft to palpation, No Tenderness to palpation present (GI), No Guarding due to palpation present (GI), No Rigid due to palpation an
[2023-08-23] MEDS: ceFAZolin 2 GM/D5W 50 ML 2 GM/50 ML BAG IVPB (07:30)
[2023-08-23] MEDS: BUPIVACAINE/EPINEPHRINE 0.5% 50 ML VIAL 30 ML INFILTRATE (08:49)
--- NOTE | 2023-08-23 08:57 | P.OP_ITS ---
Procedure Note - Detailed Date of Procedure 08/23/23 Pre-op Diagnosis left inguinal Hernia Post-op Diagnosis Same Procedure Performed robotic assisted left inguinal hernia repair with mesh Surgeon Nadira Guerra MD Anesthesia General Indications 52 y/o M c LIH and worsening groin pain over last year Findings indirect left inguinal hernia Description of Procedure Patient was brought into the operating room and placed in the supine position. After adequate induction of general anesthesia, the patient was prepped and draped in normal sterile fashion. A time-out was then done to verify the patient's identity, as well as the procedure being performed. I began by making a 8 mm incision in the supraumbilical region, a Veress needle was then placed into the peritoneal cavity. CO2 gas was then insufflated and after adequate pneumoperitoneum was achieved, the Veress needle was removed. I then placed an 8 mm trocar through this incision. I then placed the endoscope through this trocar site and under direct visualization placed 2 further 8 mm ports in the right and left mid abdomen. The [email or web address] robot was then docked to the 3 trocar sites. I then scrubbed out and went to the robotic console. Upon examining the pelvis, it was noted that the patient had a moderate sized left inguinal hernia. The right side was examined and no hernia defect was noted. I began by making a preperitoneal flap approximately 6 cm superior to the defect. This flap was carried medially past the umbilical ligaments and laterally to the transversalis. It then began dissection of my medial compartment taking this d own to the pubic tubercle. I then began the lateral dissection taking this down to the transversalis fascia. Once these compartments were achieved, I began dissection around the cord structures. A moderate sized indirect hernia was noted at this point. Using careful dissection, was able to reduce indirect hernia sac off the cord structures. There was also a large lipoma of the cord that was reduced. Once this was adequately done, I went ahead and placed a large piece of 3D Max mesh into the abdominal cavity. The mesh was carefully positioned, centering the center of the mesh over the indirect defect. Once this was done, was very satisfied with our repair. Using 3-0 Vicryl sutures, I tacked the mesh medially to Harsha's ligament. Two lateral sutures were placed from the mesh to the transversalis fascia. I then closed the peritoneal flap with a running 2.0 V Lock suture. The abdomen was then desufflated, and all ports were removed. All incisions were then closed with the 4.0 monocryl suture. Dermabond was placed on each wound. The patient tolerated the procedure well, was extubated in the operating room postoperatively, and will now be transferred to the recovery room in stable condition. Implants large 3DMax mesh Estimated Blood Loss 10 Drains No Packing No Pathology None sent Complications No immediate complications Condition Stable Disposition PACU [facility] Billing Surgery - Charge Forward: Surgery Billing
[2023-08-23] MEDS: oxyCODONE HCL (*CRX) 5 MG TAB IR PO (10:11)
== END 2023-08-23 11:10 | disposition home or self-care (01) ==
PROVIDERS: PCP Family Medicine; Visit Provider Surgery
PROC: 8E0Y4CZ Robotic Assisted Procedure of Lower Extremity, Percutaneous Endoscopic Approach (ICD-10-PCS; CPT 49650; principal; 2023-08-23 07:30)
DX: K40.90 Unilateral inguinal hernia, without obstruction or gangrene, not specified as recurrent (principal)
CPT/HCPCS: 49650; S2900; A9270; C1781; J0330; J0690; J1100; J1170; J1885; J2250; J2405; J2704; J3010; J7030; J7120

== ENCOUNTER 2023-10-28 15:17 | Outpatient (CLI) | payer BC, SELFPAY ==
[2023-10-28 18:17] LABS: Hemoglobin A1C 5.5 % (<5.7)
== END 2023-10-28 15:18 | disposition home or self-care (01) ==
LOC: ANHLAB 15:18
PROVIDERS: PCP Family Medicine; Visit Provider Nurse Practitioner Family
DX: R73.09 Other abnormal glucose (principal)
CPT/HCPCS: 36415; 83036

== ENCOUNTER 2024-11-14 12:30 | Outpatient (CLI) | payer OTHER, SELFPAY ==
--- NOTE | ~2024-11-14 | US_ITS ---
US scrotum doppler INDICATION: Left lower quadrant pain. Left inguinal pain. TECHNIQUE: Testicular sonogram utilizing grayscale and color Doppler FINDINGS: The testes are normal in size and appearance. No focal lesions are seen. The right testes measures 4.4 x 2.6 x 3.9 cm centimeters, and the left testis measures 4.6 x 2.3 x 3.2 cm cm. There is normal vascular flow to both testes. The right and left epididymides appear normal. There is a right varicocele. IMPRESSION: 1. Right varicocele. Reviewed, dictated and finalized at location B. 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 Right varicocele.
--- NOTE | ~2024-11-14 | US_ITS ---
Left inguinal ULTRASOUND Ordering provider: Nadira Guerra MD History: . R10.32 - Left lower quadrant pain . Comparison: No FINDINGS/impression: Breech with moving tissue noted in the left inguinal area suggestive of a hernia measuring 0.8 x 0.8 cm. Reviewed, dictated and finalized at location A. 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
== END 2024-11-14 12:31 | disposition home or self-care (01) ==
LOC: MICIMG 12:31
PROVIDERS: PCP Surgery; Visit Provider Surgery
DX: R93.0 Abnormal findings on diagnostic imaging of skull and head, not elsewhere classified (principal); I86.1 Scrotal varices
CPT/HCPCS: 76870; 76882; 93976

== ENCOUNTER 2025-02-09 15:52 | Outpatient (CLI) | payer OTHER, SELFPAY ==
--- NOTE | ~2025-02-09 | MR_ITS ---
EXAMINATION: MR brain IAC wo con DATE: 02/09/2025 16:28 INDICATION: Dizziness and giddiness TECHNIQUE: Magnetic resonance imaging (MRI) of the brain and brainstem was performed without intraven ous contrast. Sequences included sagittal and axial T1-weighted FSE, axial diffusion-weighted FS EPI, axial T2*-weighted GRE, axial T2-weighted FLAIR Propeller, axial T2-weighted Propeller, small field- of-view coronal FIESTA, small idffm-cm-gabq coronal T1-weighted FSE, and small aglea-mi-llbv axial T1 -weighted SPGR. Apparent diffusion coefficient (ADC) maps were created. COMPARISON: None. FINDINGS: There are no areas of restricted diffusion to suggest acute infarction. No intracranial hemorrhage or abnormal intracranial mass lesion. A couple small foci of nonspecific white matter T2 hyperintensity in the anterior right frontal lobe and anterior left temporal lobe. There are no intraparenchymal si gnal abnormalities seen on the other pulse sequences. The ventricles are symmetric and normal in size . There are no abnormal extra-axial fluid collections. Normal seventh/eighth cranial nerve complexes. The bilateral cochlea and semicircular canals appear unremarkable. No cerebellopontine angles masses . No evidence of mastoid or middle ear fluid. Flow voids are seen in the cerebral arteries on the T2 -weighted sequences consistent with their expected patency. The left P1 segment is patent. The right posterior cerebral artery supplied via a patent right posterior communicating artery. Orbits are norm al. Mild mucosal thickening the bilateral frontal and ethmoid sinuses. IMPRESSION: 1. Normal for age brain with couple small foci of calcific white matter T2 hyperintensity which are l ikely sequela of chronic small vessel ischemic disease. 2. Normal bilateral 7th and 8th nerve complexes with no cerebellopontine angle masses. Reviewed, dictated and finalized at location A. IMPRESSION: 1. Normal for age brain with couple small foci of calcific white matter T2 hype rintensity which are likely sequela of chronic small vessel ischemic disease. 2. Normal bilateral 7th and 8th nerve complexes with no cerebellopontine angle masses.
== END 2025-02-09 15:53 | disposition home or self-care (01) ==
PROVIDERS: PCP Family Medicine; Visit Provider Family Medicine
DX: R90.82 White matter disease, unspecified (principal)
CPT/HCPCS: 70551

== ENCOUNTER 2025-06-12 15:43 | Outpatient (CLI) | payer OTHER, SELFPAY ==
--- NOTE | ~2025-06-12 | XR_ITS ---
AP and lateral views of the sacrum/coccyx CLINICAL HISTORY: Anesthesia scan FINDINGS: Hip joints and SI joints are unremarkable. No erosive, sclerotic, or degenerative change. N o fracture or dislocation. Soft tissues are unremarkable. IMPRESSION: Unremarkable exam. Reviewed, dictated and finalized at location . IMPRESSION: Unremarkable exam.
--- NOTE | ~2025-06-12 | XR_ITS ---
Lumbosacral Spine: AP and lateral views Clinical History: Pain Findings: The normal lordotic curve is maintained. The vertebral bodies and posterior elements are i ntact. The intervertebral disc spaces are preserved. The sacroiliac joints are normally outlined. Impression: No significant abnormality. Reviewed, dictated and finalized at [facility]. Impression: No significant abnormality.
== END 2025-06-12 15:44 | disposition home or self-care (01) ==
LOC: MICIMG 15:43
PROVIDERS: PCP Family Medicine; Visit Provider Nurse Practitioner Adult Health
DX: R20.0 Anesthesia of skin (principal)
CPT/HCPCS: 72100; 72220

== ENCOUNTER 2025-09-26 12:00 | Outpatient (CLI) | payer OTHER, SELFPAY ==
--- NOTE | 2025-09-26 12:31 | NEURO_ITS ---
Impression: # Complains of numbness of left foot. ? # Nerve Conduction Study motor and sensory normal except left peroneal polyphasic response. Suggestive of past involvement ? # Normal Needle/ EMG exam normal. Nerve Conduction Studies ?Stim Site NR Peak (ms) P-T Amp (?V) Site1 Site2 Delta-P (ms) Dist (cm) Mp (m/s) Left Sup Fibular Anti Sensory (Ant Lat Mall) 14 cm ? 4.0 5.0 14 cm Ant Lat Mall 4.0 16.0 40 Right Sup Fibular Anti Sensory (Ant Lat Mall) 14 cm ? 3.4 2.4 14 cm Ant Lat Mall 3.4 16.0 47 Left Sural Anti Sensory (Lat Mall) Calf ? 2.8 5.3 Calf Lat Mall 2.8 16.0 57 Right Sural Anti Sensory (Lat Mall) Calf ? 2.8 11.0 Calf Lat Mall 2.8 16.0 57 ?Stim Site NR Onset (ms) O-P Amp (mV) Site1 Site2 Delta-0 (ms) Dist (cm) Mp (m/s) Left Peroneal Motor (Vastus Med) Ankle ? 3.8 1.1 Popit Ankle 9.2 43.0 47 Popit ? 13.0 0.2 Right Peroneal Motor (Vastus Med) Ankle ? 3.8 2.8 Popit Ankle 8.9 43.0 48 Popit ? 12.7 2.5 Left Tibial Motor (Abd Simms Brev) Ankle ? 4.8 10.3 Knee Ankle 9.0 44.0 49 Knee ? 13.8 7.5 Right Tibial Motor (Abd Simms Brev) Ankle ? 4.8 9.8 Knee Ankle 9.2 44.0 48 Knee ? 14.0 5.9 F Wave Studies ?NR F-Lat (ms) L-R F-Lat (ms) Left Peroneal (Mrkrs) (EDB) ? 57.65 0.34 Right Peroneal (Mrkrs) (EDB) ? 57.99 0.34 Left Tibial (Mrkrs) (Abd Hallucis) ? 54.53 0.19 Right Tibial (Mrkrs) (Abd Hallucis) ? 54.34 0.19 Electromyography ?Side Muscle Nerve Root Ins Act Fibs Amp Dur Recrt Comment Right AntTibialis Dp Br Fibular L4-5 Nml Nml Nml Nml Nml Right Gastroc Tibial S1-2 Nml Nml Nml Nml Nml Right Fibularis Long Sup Br Fibular L5-S1 Nml Nml Nml Nml Nml Right Flex Dig Long Tibial L5-S2 Nml Nml Nml Nml Nml Right Ext Dig Brev Dp Br Fibular L5, S1 Nml Nml Nml Nml Nml Right QuadratusFem QuadFemoris L4-5, S1 Nml Nml Nml Nml Nml Left AntTibialis Dp Br Fibular L4-5 Nml Nml Nml Nml Nml Left Gastroc Tibial S1-2 Nml Nml Nml Nml Nml Left Fibularis Long Sup Br Fibular L5-S1 Nml Nml Nml Nml Nml Left Flex Dig Long Tibial L5-S2 Nml Nml Nml Nml Nml Left Ext Dig Brev Dp Br Fibular L5, S1 Nml Nml Nml Nml Nml Left QuadratusFem QuadFemoris L4-5, S1 Nml Nml Nml Nml Nml
--- OUTSIDE RECORDS SUMMARY | 2025-09-26 17:30 | XMS_ITS | Encounter Summary ---
Author Organization [facility] Address [address] [place] [address] Phone Care Team Providers Care Store Sales Manager Name Role Phone Vickey Sparks MD Primary Care Provider [phone] Encounter Details Date Type Department Care Team (Latest Contact Info) Description 09/10/2021 Orders Only [facility] CARDIOLOGY Scanning, Provider Social History Tobacco Use Types Packs/Day Years Used Date Smoking Tobacco: Light Smoker Cigars Smokeless Tobacco: Never Sex and Gender Information Value Date Recorded Sex Assigned at Not on file 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 Gender Identity Not on file Sexual Orientation Not on file documented as of this encounter Plan of Treatment Not on file documented as of this encounter Procedures Procedure Name Priority Date/Time Associated Diagnosis Comments PULMONARY - RESULT SCAN 09/10/2021 documented in this encounter Results * PULMONARY - RESULT SCAN (09/10/2021) Anatomical Region Laterality Modality Other us Provider Scanning Final Result documented in this encounter Visit Diagnoses Not on filedocumented in this encounter Care Teams Store Sales Manager Relationship Specialty Start Date End Date Vickey Sparks MD PCP - General Family Medicine 12/16/20 documented as of this encounter
--- OUTSIDE RECORDS SUMMARY | 2025-09-26 17:30 | XMS_ITS | Clinical Summary ---
Author Organization [facility] Address [facility] [place] [address] Care Team Providers Care Hop Strainer Name Role Phone Vickey Sparks MD Primary Care Provider + [phone] Allergies No known active allergies Medications fluticasone propionate (FLONASE) 50 mcg/actuation nasal spray 1 Active azelastine (ASTELIN) 137 mcg (0.1 %) nasal spray Administer 1 spray into each nostril 2 (two) times a day Use in each nostril as directed Active multivitamin capsule Take 1 capsule by mouth daily Active cholecalciferol (VITAMIN D-3) 5,000 unit tablet 1 Active arginine HCl, L-arginine, 1,000 mg tablet Take 1,000 mg by mouth daily 30 tablet 5 1 Active thiamine (VITAMIN B1) 100 mg tablet Take 1 tablet (100 mg total) by mouth daily 30 tablet 11 1 Active ALPRAZolam (XANAX) 0.25 mg tablet Take 1 tablet (0.25 mg total) by mouth 3 (three) times a day as needed for anxiety 10 tablet 1 Active Additional Information Patient taking differently:0.25 mg oral 3 times daily PRN, anxiety,Haven't taken yet, but have the prescription., Reported on 03/04/2022 nadoloL (CORGARD) 20 mg tablet Take 1 tablet (20 mg total) by mouth daily 30 tablet 11 1 Active Additional Information Patient not taking.Reported on 07/06/2022 albuterol HFA (PROVENTIL HFA,VENTOLIN HFA,PROAIR HFA) 90 mcg/actuation inhaler Inhale 2 puffs as needed for wheezing (As needed before activity) Up to 4 times dailyl. 1 each 3 2 Active Additional Information Patient not taking.Reported on 07/06/2022 UNABLE TO FIND Med Name: Beet Root Capsule Active ascorbic acid (VITAMIN C) 500 mg tablet,chewable Acti ve pravastatin (PRAVACHOL) 20 mg tablet Take 1 tablet (20 mg total) by mouth daily 90 tablet 3 2 Active Active Problems Problem Noted Date Diagnosed Date History of COVID-19 03/06/2022 Palpitations 05/19/2021 Fatigue due to exposure 05/19/2021 SOB (shortness of breath) 05/19/2021 Tachycardia 01/30/2021 COVID-19 01/30/2021 Hypertension 01/30/2021 Family History Medical History Relation Name Comments No Known Problems Father No Known Problems Mother Relation Name Status Comments Father Mother Social History Tobacco Use Types Packs/Day Years Used Date Smoking Tobacco: Light Smoker Cigars Smokeless Tobacco: Never Personal Safety Answer Date Recorded Getting School Help Needed Not on file 11/09 Sex and Gender Information Value Date Recorded Sex Assigned at Not on file 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 Gender Identity Not on file Sexual Orientation Not on file Last Filed Vital Signs Vital Sign Reading Time Taken Comments Blood Pressure 147/90 07/06/2022 9:31 AM CDT Pulse 73 07/06/2022 9:31 AM CDT Temperature 36.9 C (98.5 F) 03/04/2022 12:43 PM CDT Respiratory Rate 18 03/04/2022 12:43 PM CDT Oxygen Saturation 99% 07/06/2022 9:31 AM CDT Inhaled Oxygen Concentration - - Weight 88 kg (194 lb) 07/06/2022 9:31 AM CDT Height 179.1 cm (5' 10.5) 07/06/2022 9:31 AM CD T Body Mass Index 27.44 07/06/2022 9:31 AM CDT Plan of Treatment Not on file Insurance BLUE ACCESS OOS BLUE ACCESS OOS BLUE ACCESS OOS Care Teams Hop Strainer Relationship Specialty Start Date End Date Vickey Sparks MD PCP - General Family Medicine 12/16/20
--- OUTSIDE RECORDS SUMMARY | 2025-09-26 17:30 | XMS_ITS | Encounter Summary ---
Author Organization [facility] Address [address] [place] [address] Phone Care Team Providers Care Aquatic Centre Manager Name Role Phone Vickey Sparks MD Primary Care Provider [phone] Encounter Details Date Type Department Care Team (Latest Contact Info) Description 08/11/2021 Orders Only T[facility] IM CARDIOLOGY Scanning, Provider Social History Tobacco Use Types Packs/Day Years Used Date Smoking Tobacco: Light Smoker Cigars Smokeless Tobacco: Never Sex and Gender Information Value Date Recorded Sex Assigned at Not on file 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
== END 2025-09-26 12:01 | disposition home or self-care (01) ==
PROVIDERS: PCP Family Medicine; Visit Provider Nurse Practitioner Adult Health
DX: G57.62 Lesion of plantar nerve, left lower limb (principal)
CPT/HCPCS: 95886; 95910